=== PATIENT | female | born 1950 | race Caucasian/White ===

== ENCOUNTER 2017-07-29 20:18 | Emergency (ER) | payer MEDICARE, OTHER ==
[2017-07-29] MEDS ORDERED: ACETAMINOPHEN 325 MG TABLET PO ONE (20:58)
[2017-07-29] MEDS ORDERED: NORMAL SALINE 1000 ML 1,000 ML IV ONE (20:58)
--- NOTE | 2017-07-29 21:16 | ER Document Report ---
ED General - General Chief Complaint: Nausea/Vomiting, dysuria, dehydration Stated Complaint: VOMITING Time Seen by Provider: 07/29/17 21:04 Notes: Patient is a 67-year-old female that comes emergency department for chief complaint of fever, flank pain, and vomiting. She states that she has not vomited today, she vomited for the past several days, she started developing fevers and dysuria yesterday, she reports flank pain that is mainly on her right side. She denies chest pain, difficulty breathing, abdominal pain, she reports she has a mild headache. Only past medical history is hypertension, appendectomy, hiatal hernia repair. She lives at home. TRAVEL OUTSIDE OF THE [place] IN LAST 30 DAYS: No - Related Data Allergies/Adverse Reactions: No Known Allergies Allergy (Unverified 04/17/14 11:18) Past Medical History - General Information source: Patient - Social History Smoking Status: Never Smoker Frequency of alcohol use: None Drug Abuse: None Lives with: Family Family History: Reviewed & Not Pertinent - Past Medical History Cardiac Medical History: Reports: Hx Hypercholesterolemia, Hx Hypertension Renal/ Medical History: Denies: Hx Peritoneal Dialysis - Immunizations Hx Diphtheria, Pertussis, Tetanus Vaccination: Yes Review of Systems - Review of Systems Constitutional: See HPI EENT: No symptoms reported Cardiovascular: No symptoms reported Respiratory: No symptoms reported Gastrointestinal: See HPI Genitourinary: See HPI Female Genitourinary: No symptoms reported Musculoskeletal: No symptoms reported Skin: No symptoms reported Hematologic/Lymphatic: No symptoms reported Neurological/Psychological: No symptoms reported Physical Exam - Vital signs Vitals: Temp Pulse Resp BP Pulse Ox 103.1 F H 90 18 131/87 H 95 07/29/17 20:36 07/29/17 20:36 07/29/17 20:36 07/29/17 20:36 07/29/17 20:36 Interpretation: Normal - General General appearance: Appears well, Alert In distress: None - HEENT Head: Normocephalic, Atraumatic Eyes: Normal Conjunctiva: Normal Extraocular movements intact: Yes Eyelashes: Normal Pupils: PERRL Sinus: Normal Nasal: Normal Mouth/Lips: Normal Mucous membranes: Normal Pharynx: Normal Neck: Normal - Respiratory Respiratory status: No respiratory distress Chest status: Nontender Breath sounds: Normal Chest palpation: Normal - Cardiovascular Rhythm: Regular. No: Tachycardia Heart sounds: Normal auscultation, S1 appreciated, S2 appreciated Murmur: No - Abdominal Inspection: Normal Distension: No distension Bowel sounds: Normal Tenderness: Nontender. No: Tender, Guarding Organomegaly: No organomegaly - Back Back: Normal, Nontender. No: Tender - Extremities General upper extremity: Normal inspection, Nontender, Normal ROM, Normal strength General lower extremity: Normal inspection, Nontender, Normal ROM, Normal strength - Neurological Neuro grossly intact: Yes Cognition: Normal Orientation: AAOx4 [place] Coma Scale Eye Opening: Spontaneous [place] Coma Scale Verbal: Oriented [place] Coma Scale Motor: Obeys Commands Darren Coma Scale Total: 15 Speech: Normal Motor strength normal: LUE, RUE, LLE, RLE Sensory: Normal - Psychological Associated symptoms: Normal affect, Normal mood - Skin Skin Temperature: Warm Skin Moisture: Dry Skin Color: Normal Course - Re-evaluation Re-evalutation: Patient febrile at 103.1, however she actually is extremely well-appearing, she is not tachycardic, hypotensive, or in any distress. Soft abdomen, clear lungs , no CVA tenderness. Ambulates without difficulty. Smiling and conversational. CBC does not show leukocytosis or bandemia. Chemistry unremarkable. Chest x-ray unremarkable. Urinalysis shows significant infection. Rocephin given. Urine culture placed. Blood cultures were placed. Lactic acid is not elevated. I reevaluated patient. She is smiling, she states that after Tylenol she has no symptoms and she wants to leave. I did discuss potential admission because of her age, significant infection, and fever. Patient and both declined. They state that if she develops vomiting, continues to have spiking fever, develops flank pain, worsens in any way that they will return, however they are not interested in discussing admission any further. Patient was given Levaquin, she states she will take it regularly. She does agree to see her primary care within 2 days, states she will call him in the morning. - Vital Signs Vital signs: Temp Pulse Resp BP Pulse Ox 103.1 F H 90 20 136/66 H 96 07/29/17 20:36 07/29/17 20:36 07/30/17 01:01 07/30/17 01:01 07/30/17 01:01 - Laboratory Result Diagrams: 07/29/17 21:10 07/29/17 21:10 Laboratory results interpreted by me: 07/29/17 07/29/17 07/29/17 21:10 21:10 21:10 Seg Neuts % (Manual) 87 H Lymphocytes % (Manual) 4 L Abs Neuts (Manual) 9.0 H VBG pH 7.45 H Est GFR (Non-Af Amer) 58 L Glucose 125 H POC Glucose Urine Protein Urine Ketones Urine Blood Urine Nitrite Urine Urobilinogen Ur Leukocyte Esterase 07/29/17 07/29/17 21:10 23:20 Seg Neuts % (Manual) Lymphocytes % (Manual) Abs Neuts (Manual) VBG pH Est GFR (Non-Af Amer) Glucose POC Glucose 120 H Urine Protein 100 H Urine Ketones 20 H Urine Blood MODERATE H Urine Nitrite POSITIVE H Urine Urobilinogen 4.0 H Ur Leukocyte Esterase LARGE H Discharge - Discharge Clinical Impression: Fever Qualifiers: Fever type: unspecified Qualified Code(s): R50.9 - Fever, unspecified Urinary tract infection Qualifiers: Urinary tract infection type: site unspecified Hematuria presence: without hematuria Qualified Code(s): N39.0 - Urinary tract infection, site not specified Condition: Stable Disposition: HOME, SELF-CARE Additional Instructions: You have a urinary tract infection. Please take the antibiotics daily as prescribed. Followup with your primary care within 2 days. Return to the ED immediately if you worsen in any way - vomiting, abdominal pain , back pain, returned fever, or any other concerning symptoms. Prescriptions: Levofloxacin [Levaquin 750 mg Tablet] 750 mg PO DAILY #5 tablet Referrals: BARRETT COTO MD [Primary Care Provider] - Follow up as needed
--- NOTE | 2017-07-29 21:45 | RADIOLOGY REPORT (SQ) ---
EXAM DESCRIPTION: CHEST PA/LAT COMPLETED DATE/TIME: 07/29/2017 9:36 pm REASON FOR STUDY: fever COMPARISON: 09/07/2015. EXAM PARAMETERS: NUMBER OF VIEWS: two views TECHNIQUE: Digital Frontal and Lateral radiographic views of the chest acquired. RADIATION DOSE: NA LIMITATIONS: none FINDINGS: LUNGS AND PLEURA: No opacities, masses or pneumothorax. No pleural effusion. MEDIASTINUM AND HILAR STRUCTURES: No masses or contour abnormalities. HEART AND VASCULAR STRUCTURES: Heart normal size. No evidence for failure. BONES: No acute findings. HARDWARE: None in the chest. OTHER: No other significant finding. IMPRESSION: NO SIGNIFICANT RADIOGRAPHIC FINDING IN THE CHEST. TECHNICAL DOCUMENTATION: JOB ID: [id number] [employer]- All Rights Reserved
[2017-07-29 21:55] LABS: HEMATOCRIT 40.3 % (36.0-47.0); HGB HCT DIFFERENCE 1.7; MEAN CORPUSCULAR HEMOGLOBIN 31.4 pg (27.0-33.4); MEAN CORPUSCULAR HGB CONC 34.6 g/dL (32.0-36.0); MEAN CORPUSCULAR VOLUME 91 fl (80-97); RED BLOOD COUNT 4.44 10^6/uL (3.72-5.28)
[2017-07-29 21:57] LABS: VENOUS BLOOD BASE EXCESS 1.1 mmol/L; VENOUS BLOOD HCO3 24.7 mmol/L (20-32); VENOUS BLOOD PCO2 36.2 mmHg (35-63); VENOUS BLOOD PH 7.45 (7.30-7.42)
[2017-07-29 21:59] LABS: PROTHROMBIN TIME 13.5 SEC (11.4-15.4)
[2017-07-29 22:13] LABS: ALANINE AMINOTRANSFERASE 33 U/L (9-52); ALBUMIN 4.3 g/dL (3.5-5.0); ALKALINE PHOSPHATASE 117 U/L (38-126); ANION GAP 13 (5-19); ASPARTATE AMINO TRANSFERASE 36 U/L (14-36); BILIRUBIN,DIRECT 0.4 mg/dL (0.0-0.4); BILIRUBIN,TOTAL 0.8 mg/dL (0.2-1.3); BLOOD UREA NITROGEN 20 mg/dL (7-20); CALCIUM 9.6 mg/dL (8.4-10.2); CARBON DIOXIDE 24 mmol/L (22-30); CHLORIDE 102 mmol/L (98-107); CREATININE RESULT 0.96 mg/dL (0.52-1.25); GLUCOSE 125 mg/dL (75-110); POTASSIUM 3.6 mmol/L (3.6-5.0); SODIUM 139.2 mmol/L (137-145); TOTAL PROTEIN 8.1 g/dL (6.3-8.2)
[2017-07-29 22:17] LABS: BAND NEUTROPHILS % (MANUAL) 3 % (3-5); BASOPHILS % (MANUAL) 0 % (0-2); EOSINOPHILS % (MANUAL) 0 % (0-6); LYMPHOCYTES % (MANUAL) 4 % (13-45); TOTAL CELLS COUNTED 100
[2017-07-29 22:20] LABS: ANISOCYTOSIS SLIGHT; PLATELET CLUMPS PRESENT; POLYCHROMASIA SLIGHT
[2017-07-29 22:25] LABS: APPEARANCE,URINE CLOUDY; BILIRUBIN,URINE NEGATIVE (NEGATIVE); GLUCOSE, URINE NEGATIVE (NEGATIVE); KETONES,URINE 20 mg/dL (NEGATIVE); LEUKOCYTE ESTERASE,URINE LARGE (NEGATIVE); NITRITE,URINE POSITIVE (NEGATIVE); PROTEIN,URINE 100 mg/dL (NEGATIVE); URINE SPECIFIC GRAVITY 1.015
[2017-07-29] MEDS ORDERED: CEFTRIAXONE 1 GM/D5W RTU 1 GM/50 ML RTUPB IV ONE (22:47)
[2017-07-30 01:24] VITALS: BP 136/66
--- NOTE | 2017-07-30 07:54 | EKG REPORT ---
SEVERITY:- ABNORMAL ECG - SINUS RHYTHM LEFT ANTERIOR FASCICULAR BLOCK BORDERLINE T ABNORMALITIES, ANTERIOR LEADS : Confirmed by: David Milian MD 30-Jul-2017 07:54:12
== END 2017-07-30 01:24 | disposition home or self-care (01) ==
LOC: ER 20:18
DX: N39.0 Urinary tract infection, site not specified (principal); R50.9 Fever, unspecified; E86.0 Dehydration; R11.2 Nausea with vomiting, unspecified; E78.00 Pure hypercholesterolemia, unspecified; I10 Essential (primary) hypertension
CPT/HCPCS: 93005; 99284; 96361; 96365; 36415; 87040; 87086; 82962; 85025; 85610; 87077; 87088; 80053; 81001; 87186; 82803; 83605; 71020; 93010; A9270; J7030; J0696

== ENCOUNTER 2017-07-30 08:31 | Observation (INO) | payer MEDICARE, OTHER ==
[2017-07-30] MEDS ORDERED: ONDANSETRON HCL INJ/PF 4 MG/2 ML SDV IV ONE (09:44)
[2017-07-30] MEDS ORDERED: NORMAL SALINE 1000 ML 1,000 ML IV PRN ×2 (09:45→13:36)
--- NOTE | 2017-07-30 09:48 | ER Document Report ---
ED General - General Chief Complaint: Urinary Problem Stated Complaint: URINARY SYMPTOMS Time Seen by Provider: 07/30/17 09:28 Mode of Arrival: Ambulatory Information source: Patient Notes: This is a 67-year-old female with a history of hypertension and dyslipidemia who presented to the emergency room yesterday with fever of 103, flank pain and Rigors. Patient was diagnosed with a pyelonephritis, treated with IV fluids and IV antibiotics and discharged with oral antibiotics. Patient states she felt good at the time of discharge at 2 AM. Patient states she went to bed at 4 AM and then was awoken at 6 AM with Rigors, vomiting, nausea and right flank pain. Review of the urine from yesterday shows gram-negative rods. TRAVEL OUTSIDE OF THE [place] IN LAST 30 DAYS: No - HPI Onset: Just prior to arrival Onset/Duration: Gradual Quality of pain: Dull Severity: Moderate Associated symptoms: Chills, Fever Exacerbated by: Denies Relieved by: Denies Similar symptoms previously: Yes Recently seen / treated by doctor: Yes - Related Data Allergies/Adverse Reactions: No Known Allergies Allergy (Verified 07/30/17 08:39) Home Medications: Current Home Medications Lisinopril [Prinivil] 20 mg PO DAILY 07/30/17 [History] Omeprazole 20 mg PO DAILY 07/30/17 [History] Past Medical History - General Information source: Patient - Social History Smoking Status: Never Smoker Cigarette use (# per day): No Chew tobacco use (# tins/day): No Frequency of alcohol use: None Drug Abuse: None Lives with: Family Family History: Reviewed & Not Pertinent Patient has suicidal ideation: No Patient has homicidal ideation: No - Past Medical History Cardiac Medical History: Reports: Hx Hypercholesterolemia, Hx Hypertension Neurological Medical History: Reports: Hx Migraine Renal/ Medical History: Denies: Hx Peritoneal Dialysis Past Surgical History: Reports: Hx Abdominal Surgery - hernia repair, Hx Appendectomy, Hx Tonsillectomy - Immunizations Hx Diphtheria, Pertussis, Tetanus Vaccination: Yes Review of Systems - Review of Systems Notes: Review of systems: Constitutional: Positive for fever and rigors EENT: Denies ear pain, sinus tenderness, throat pain, throat swelling. Cardiovascular: Denies chest pain, palpitations, dyspnea or edema. Respiratory: Denies wheezing, cough, hemoptysis. Abdomen: Denies abdominal pain, nausea, vomiting, diarrhea. Denies BRBPR or melena. Genitourinary: Dysuria and right flank pain Musculoskeletal: denies joint pain or swelling, denies back pain. Neurologic: Denies headache, photophobia, neck stiffness, weakness. Denies loss of bowel or bladder function. Denies saddle anesthesia. Skin: Denies rash, lesions. Physical Exam - Vital signs Vitals: Temp Pulse Resp BP Pulse Ox 98.4 F 94 16 128/73 H 95 07/30/17 08:35 07/30/17 08:35 07/30/17 08:35 07/30/17 08:35 07/30/17 08:35 Notes: Physical exam: GENERAL: 67-year-old female, alert and oriented 3, no acute distress HEAD: Atraumatic, normocephalic. EYES: Pupils equal round and reactive to light, extraocular movements intact, sclera anicteric, conjunctiva are normal. ENT: TMs normal, nares patent, oropharynx clear without exudates. Moist mucous membranes. NECK: Normal range of motion, supple without obvious mass or JVD. LUNGS: Breath sounds clear to auscultation bilaterally and equal. No wheezes rales or rhonchi. HEART: Regular rate and rhythm without murmurs, rubs or gallops. ABDOMEN: Soft, normoactive bowel sounds. No tenderness to palpation. No guarding, no rebound. No masses appreciated. BACK: The patient does have right CVA tenderness without any obvious changes to the skin, swelling or erythema. EXTREMITIES: Normal range of motion, no pitting or edema. No clubbing or cyanosis. NEUROLOGICAL: Cranial nerves II through XII grossly intact. Normal speech, moving all extremities. PSYCH: Normal mood, normal affect. SKIN: Warm, Dry, normal turgor, no rashes or lesions noted. Course - Re-evaluation Re-evalutation: 07/30/17 09:49 Note: The patient is presenting with symptoms of bacteremia in the setting of pyelonephritis. Her urine culture from last night already shows gram-negative rods. Blood cultures are pending. Based upon the persistence of vomiting and inability to tolerate PO antibiotics, recurrent rigors, we will admit her to the hospital for IV fluids and IV antibiotics. 07/30/17 10:59 - Vital Signs Vital signs: Temp Pulse Resp BP Pulse Ox 98.4 F 94 18 128/73 H 95 07/30/17 08:35 07/30/17 08:35 07/30/17 09:02 07/30/17 08:35 07/30/17 08:35 - Diagnostic Test Radiology reviewed: Image reviewed, Reports reviewed - CT of the abdomen consistent with pyelonephritis Discharge - Discharge Clinical Impression: Pyelonephritis, Vomiting with nausea Condition: Stable Disposition: ADMITTED INPATIENT Admitting Provider: Hospitalist - Dr Ortega
--- NOTE | 2017-07-30 10:46 | RADIOLOGY REPORT (SQ) ---
EXAM DESCRIPTION: CT LTD RENAL STONE PROTOCOL ON COMPLETED DATE/TIME: 07/30/2017 10:00 am REASON FOR STUDY: right flank pain COMPARISON: CT abdomen pelvis 04/17/2014 TECHNIQUE: CT scan of the abdomen and pelvis performed without intravenous or oral contrast. Images reviewed with lung, soft tissue, and bone windows. Reconstructed coronal and sagittal MPR images revi ewed. All images stored on PACS. All CT scanners at this facility use dose modulation, iterative reconstruction, and/or weight based d osing when appropriate to reduce radiation dose to as low as reasonably achievable (ALARA). [facility]: Dose Right [facility]: CareDose [facility]: Dose Right [facility]: Teradose 4D [facility]: [employer] RADIATION DOSE: Up-to-date CT equipment and radiation dose reduction techniques were employed. CTDIv ol: 10.1 mGy. DLP: 509 mGy-cm.mGy. LIMITATIONS: None. FINDINGS: LOWER CHEST: Large retrocardiac hiatal hernia. NON-CONTRASTED LIVER, SPLEEN, ADRENALS: Evaluation limited by lack of IV contrast. No identified sign ificant masses. PANCREAS: No masses. No peripancreatic inflammatory changes. GALLBLADDER: No identified stones by CT criteria. No inflammatory changes to suggest cholecystitis. RIGHT KIDNEY AND URETER: There is mild right hydronephrosis and hydroureter down to the level of the ureterovesical junction. No radiopaque urinary calculi are identified. This could either be due to a recently passed right-sided ureteral stone, or could be seen in pyelonephritis. No right renal cysts or masses. No intrarenal stones. LEFT KIDNEY AND URETER: No suspicious masses. Assessment limited by lack of IV contrast. No signifi cant calcifications. No hydronephrosis or hydroureter. AORTA AND RETROPERITONEUM: No aneurysm. No retroperitoneal masses or adenopathy. BOWEL AND PERITONEAL CAVITY: No obvious masses or inflammatory changes. No free fluid. Sigmoid colon diverticuli without CT signs of acute diverticulitis. APPENDIX: Surgically absent PELVIS, BLADDER, AND ABDOMINAL WALL:No abnormal masses. No free fluid. Bladder normal. BONES: No significant findings. OTHER: No other significant finding. IMPRESSION: Mild right hydronephrosis and hydroureter, right perinephric stranding. No urinary radi opaque calculi are identified. Question recent passage of a right renal stone versus right-sided wilfredo lonephritis. COMMENT: Quality ID # [id number]: Final reports with documentation of one or more dose reduction techniques (e.g., Automated exposure control, adjustment of the mA and/or kV according to patient size, use of iterative reconstruction technique) TECHNICAL DOCUMENTATION: JOB ID: [id number] [employer]- All Rights Reserved
[2017-07-30] MEDS ORDERED: LEVOFLOXACIN 500 MG/D5W RTU 500 MG/100 ML RTUPB IV ONE (10:50)
[2017-07-30] MEDS ORDERED: ACETAMINOPHEN 325 MG TABLET PO PRN (13:36)
[2017-07-30] MEDS ORDERED: ONDANSETRON HCL INJ/PF 4 MG/2 ML SDV IV PRN (13:41)
[2017-07-30] MEDS ORDERED: TRAMADOL HCL 50 MG TABLET PO PRN (13:43)
--- NOTE | 2017-07-30 13:57 | PDOC H&P ---
History of Present Illness Admission Date/PCP: 07/30/17 11:11 BARRETT COTO MD Patient complains of: Nausea and vomiting History of Present Illness: JEREMÍAS QUESADA is a 67 year old female, with history of hiatal hernia and gastroesophageal reflux disease who was seen in the emergency room yesterday for urinary tract symptoms given 1 dose of ceftriaxone and was discharged home. The patient woke up this morning with nausea and vomiting and with back pain. She was sent back to the hospital for evaluation where a CT of the pelvis revealed findings of mild hydronephrosis possible pyelonephritis. The patient was given a dose of Rocephin and IV fluid and was referred for admission. The patient did not eat anything today due to fear of nausea and vomiting. Urine culture was performed yesterday growing gram-negative rods. Symptoms started a week ago with dysuria but no hematuria nor flank pain. The patient took over- the-counter analgesics and urinary antiseptics without relief of symptoms. This weekend patient started to develop fever and chills with associated nausea and vomiting and patient eventually presented to the emergency room yesterday with above complaints. Past Medical History Cardiac Medical History: Reports: Hyperlipidema, Hypertension Neurological Medical History: Reports: Migraine GI Medical History: Reports: Gastroesophageal Reflux Disease, Hiatal Hernia Past Surgical History Past Surgical History: Reports: Appendectomy, Tonsillectomy, Other - Hernia surgery Social History Lives with: Family Smoking Status: Never Smoker Frequency of Alcohol Use: None Hx Recreational Drug Use: No Hx Prescription Drug Abuse: No Family History Family History: Malignancy - Pancreatic cancer, Other - Crohn's disease Parental Family History Reviewed: Yes Children Family History Reviewed: Yes Sibling(s) Family History Reviewed.: Yes Medication/Allergy Home Medications: Potassium Chloride 10 meq PO DAILY 04/17/14 Simvastatin 40 mg PO QHS 04/17/14 Diltiazem HCl [Diltiazem 24Hr ER] 120 mg PO DAILY 07/30/17 Lisinopril [Prinivil] 20 mg PO DAILY 07/30/17 Omeprazole 20 mg PO DAILY 07/30/17 Allergies/Adverse Reactions: No Known Allergies Allergy (Verified 07/30/17 08:39) Review of Systems Constitutional: PRESENT: chills, fever(s). ABSENT: headache(s), night sweats, weakness, weight gain, weight loss Eyes: ABSENT: visual disturbances Ears: ABSENT: hearing changes Nose, Mouth, and Throat: ABSENT: mouth pain, sore throat Cardiovascular: ABSENT: chest pain, dyspnea on exertion, edema, orthropnea, palpitations Respiratory: ABSENT: cough, dyspnea, hemoptysis, sputum Gastrointestinal: PRESENT: abdominal pain - More than the back and flank, bloating, nausea, vomiting. ABSENT: constipation, diarrhea, hematemesis, hematochezia, melena Genitourinary: PRESENT: dysuria. ABSENT: hematuria, nocturia Musculoskeletal: ABSENT: joint swelling Integumentary: ABSENT: pruritus, rash, wounds Neurological: ABSENT: abnormal gait, abnormal speech, confusion, dizziness, focal weakness, syncope Psychiatric: ABSENT: anxiety, depression, homidical ideation, suicidal ideation Endocrine: ABSENT: cold intolerance, heat intolerance, polydipsia, polyuria Hematologic/Lymphatic: ABSENT: easy bleeding, easy bruising Physical Exam Vital Signs: Temp Pulse Resp BP Pulse Ox 98.1 F 63 18 106/59 L 100 07/30/17 12:12 07/30/17 12:12 07/30/17 12:12 07/30/17 12:12 07/30/17 12:12 General appearance: PRESENT: no acute distress, obese Head exam: PRESENT: atraumatic, normocephalic Eye exam: PRESENT: conjunctiva pink, EOMI, PERRLA. ABSENT: scleral icterus Ear exam: PRESENT: normal external ear exam Mouth exam: PRESENT: moist, neck supple, tongue midline Throat exam: ABSENT: post pharyngeal erythema Neck exam: PRESENT: full ROM. ABSENT: carotid bruit, JVD, lymphadenopathy, thyromegaly Respiratory exam: PRESENT: clear to auscultation trina, unlabored. ABSENT: rales , rhonchi, wheezes Cardiovascular exam: PRESENT: RRR, +S1, +S2. ABSENT: diastolic murmur, rubs, systolic murmur Pulses: PRESENT: normal dorsalis pedis pul Vascular exam: PRESENT: normal capillary refill GI/Abdominal exam: PRESENT: normal bowel sounds, soft. ABSENT: distended, guarding, mass, organolmegaly, rebound, tenderness Rectal exam: PRESENT: deferred Extremities exam: PRESENT: full ROM. ABSENT: calf tenderness, clubbing, pedal edema Neurological exam: PRESENT: alert, awake, oriented to person, oriented to place , oriented to time, oriented to situation Psychiatric exam: PRESENT: appropriate affect, normal mood. ABSENT: homicidal ideation, suicidal ideation Skin exam: PRESENT: dry, intact, warm. ABSENT: cyanosis, rash Results Impressions: Limited or Localized CT 07/30/17 09:45 IMPRESSION: Mild right hydronephrosis and hydroureter, right perinephric stranding. No urinary radiopaque calculi are identified. Question recent passage of a right renal stone versus right-sided pyelonephritis. Assessment & Plan - Diagnosis (1) Acute pyelonephritis Is this a current diagnosis for this admission?: Yes (2) Hydronephrosis Qualifiers: Hydronephrosis type: unspecified Qualified Code(s): N13.30 - Unspecified hydronephrosis Is this a current diagnosis for this admission?: Yes (3) Hyperlipidemia Qualifiers: Hyperlipidemia type: unspecified Qualified Code(s): E78.5 - Hyperlipidemia , unspecified Is this a current diagnosis for this admission?: Yes (4) Essential hypertension Is this a current diagnosis for this admission?: Yes (5) Hiatal hernia Is this a current diagnosis for this admission?: Yes (6) GERD (gastroesophageal reflux disease) Qualifiers: Esophagitis presence: without esophagitis Qualified Code(s): K21.9 - Gastro -esophageal reflux disease without esophagitis Is this a current diagnosis for this admission?: Yes - Time Time Spent: Greater than 70 Minutes - Plan Summary Plan Summary: The patient will be admitted to observation. We will begin the patient on IV fluids start clear liquid diet and start intravenous ceftriaxone as well. We will follow cultures. DVT prophylaxis with Lovenox will be placed. As needed antipyretic and anti-emetics will be given. Further testing depends on the initial evaluation as outlined above.
[2017-07-30 14:37] LABS: ANION GAP 12 (5-19); BLOOD UREA NITROGEN 19 mg/dL (7-20); CALCIUM 9.4 mg/dL (8.4-10.2); CARBON DIOXIDE 23 mmol/L (22-30); CHLORIDE 107 mmol/L (98-107); CREATININE RESULT 0.82 mg/dL (0.52-1.25); GLUCOSE 163 mg/dL (75-110); LIPASE 10.5 U/L (23-300); POTASSIUM 3.4 mmol/L (3.6-5.0); SODIUM 142.4 mmol/L (137-145)
[2017-07-30 14:46] LABS: AMYLASE < 30 U/L (30-110)
[2017-07-30] MEDS ORDERED: ENOXAPARIN SODIUM INJ 40 MG/0.4 ML DISP.SYRIN SUBCUT ONE (15:00)
[2017-07-30] MEDS ORDERED: ERTAPENEM SODIUM 1 GM in NORMAL SALINE 50 ML IV ONE (16:00)
[2017-07-30] MEDS: DOCUSATE SODIUM 100 MG CAPSULE PO SCH (17:29)
[2017-07-30] MEDS: LANSOPRAZOLE 30 MG TAB.RAP.DR PO SCH (17:29)
[2017-07-30] MEDS ORDERED: CEFTRIAXONE 1 GM/D5W RTU 1 GM/50 ML RTUPB IV SCH (18:00)
[2017-07-30] MEDS ORDERED: SIMVASTATIN 40 MG TABLET PO SCH (22:00)
[2017-07-31 04:49] LABS: ABSOLUTE BASOPHILS # (AUTO) 0.1 10^3/uL (0.0-0.2); ABSOLUTE EOSINOPHILS # (AUTO) 0.1 10^3/uL (0.0-0.6); ABSOLUTE MONOCYTES (AUTO) 0.9 10^3/uL (0.1-1.4); ABSOLUTE NEUT (AUTO) 6.7 10^3/uL (1.7-8.2); BASOPHILS % (AUTO) 0.6 % (0-2); HEMATOCRIT 35.8 % (36.0-47.0); HEMOGLOBIN 12.5 g/dL (12.0-15.5); HGB HCT DIFFERENCE 1.7; LYMPHOCYTES % (AUTO) 11.5 % (13-45); MEAN CORPUSCULAR HEMOGLOBIN 31.7 pg (27.0-33.4); MEAN CORPUSCULAR HGB CONC 34.9 g/dL (32.0-36.0); MEAN CORPUSCULAR VOLUME 91 fl (80-97); MONOCYTES % (AUTO) 10.3 % (3-13); RED BLOOD COUNT 3.95 10^6/uL (3.72-5.28); SEGMENTED NEUTROPHILS % (AUTO) 76.6 % (42-78); WHITE BLOOD COUNT 8.7 10^3/uL (4.0-10.5)
[2017-07-31 05:04] LABS: PHOSPHORUS 2.5 mg/dL (2.5-4.5)
[2017-07-31] MEDS: LANSOPRAZOLE 30 MG TAB.RAP.DR PO SCH (05:49)
[2017-07-31] MEDS: DOCUSATE SODIUM 100 MG CAPSULE PO SCH (09:27)
[2017-07-31] MEDS ORDERED: ENOXAPARIN SODIUM INJ 40 MG/0.4 ML DISP.SYRIN SUBCUT SCH (10:00)
[2017-07-31] MEDS ORDERED: (PENDING PHARMACY ID) (Diltiazem Hcl [Diltiazem 24hr Er] 120 MG) PO SCH (10:00)
[2017-07-31] MEDS ORDERED: DILTIAZEM HCL 120 MG CAP.SR.24H PO SCH (10:00)
[2017-07-31] MEDS ORDERED: ERTAPENEM SODIUM 1 GM in NORMAL SALINE 50 ML IV SCH (10:00)
[2017-07-31] MEDS ORDERED: LANSOPRAZOLE 30 MG TAB.RAP.DR PO ONE (10:15)
[2017-07-31] MEDS ORDERED: ONDANSETRON HCL INJ/PF 4 MG/2 ML SDV IV PRN (10:30)
[2017-07-31 12:34] VITALS: BP 151/68
[2017-07-31] MEDS ORDERED: POTASSIUM CHLORIDE 20 MEQ/15 ML UDCUP PO ONE (14:14)
--- NOTE | 2017-07-31 15:13 | PDOC DISCHARGE SUMMARY ---
General - Admit/Disc Date/PCP Admission Date/Primary Care Provider: 07/30/17 11:11 BARRETT COTO MD Discharge Date: 07/31/17 - Discharge Diagnosis (1) Acute pyelonephritis Is this a current diagnosis for this admission?: Yes (2) Hydronephrosis Is this a current diagnosis for this admission?: Yes (3) Hyperlipidemia Is this a current diagnosis for this admission?: Yes (4) Essential hypertension Is this a current diagnosis for this admission?: Yes (5) Hiatal hernia Is this a current diagnosis for this admission?: Yes (6) GERD (gastroesophageal reflux disease) Is this a current diagnosis for this admission?: Yes - Additional Information Resuscitation Status: Full Code Discharge Diet: Cardiac Discharge Activity: Activity As Tolerated, Balance Activity w/Rest Home Medications: Potassium Chloride 10 meq PO DAILY 04/17/14 Simvastatin 40 mg PO QHS 04/17/14 Diltiazem HCl [Diltiazem 24Hr ER] 120 mg PO DAILY 07/30/17 Lisinopril [Prinivil] 20 mg PO DAILY 07/30/17 Omeprazole 20 mg PO DAILY 07/30/17 Acidoph/L.bulg/Bif.b/S.thermop [Bacid Caplet] 1 each PO BID #28 tablet 07/31/17 Levofloxacin [Levaquin 750 mg Tablet] 750 mg PO DAILY 11 Days #10 tab 07/31/17 Metronidazole [Flagyl 500 mg Tablet] 500 mg PO TID #42 tablet 07/31/17 Additional Information: Follow-up blood culture results as outpatient with primary care physician in 3- 5 days. Ultrasound of the kidneys in 2 weeks for follow-up hydronephrosis with primary care physician. History of Present Illness Patient complains of: Nausea and vomiting. History of Present Illness: JEREMÍAS QUESADA is a 67 year old female, with history of hiatal hernia and gastroesophageal reflux disease who was seen in the emergency room yesterday for urinary tract symptoms given 1 dose of ceftriaxone and was discharged home. The patient woke up this morning with nausea and vomiting and with back pain. She was sent back to the hospital for evaluation where a CT of the pelvis revealed findings of mild hydronephrosis possible pyelonephritis. The patient was given a dose of Rocephin and IV fluid and was referred for admission. The patient did not eat anything today due to fear of nausea and vomiting. Urine culture was performed yesterday growing gram-negative rods. Symptoms started a week ago with dysuria but no hematuria nor flank pain. The patient took over- the-counter analgesics and urinary antiseptics without relief of symptoms. This weekend patient started to develop fever and chills with associated nausea and vomiting and patient eventually presented to the emergency room yesterday with above complaints. Hospital Course Hospital Course: The patient was admitted to telemetry floor. The patient was started on intravenous fluids. She has a urine culture that was growing gram-negative rods and therefore she was started on ceftriaxone. Patient however had one blood culture bottle growing gram-negative rods as well and therefore ceftriaxone was discontinued and patient was placed on Invanz. The following day the patient significantly improved. There was no nausea or vomiting or any abdominal pain back pain or back flank pain. She however developed loose bowel movements intermittently. Patient tolerated oral intake well. She wanted to go home and requested to be discharged and continue treatment on an outpatient basis. She was therefore advised to return to the emergency room if symptoms of diarrhea worsens. She was given prescriptions to cover for antibiotic related diarrhea with lactobacillus and metronidazole. Likewise she was advised to follow-up blood culture results on an outpatient basis with primary care physician in 3-5 days and have a follow-up renal ultrasound for her mild hydronephrosis seen on CT scan. Urine culture grew E. coli which is pansensitive but blood culture remains pending. The rest of the hospital stay is unremarkable. Physical Exam Vital Signs: Temp Pulse Resp BP Pulse Ox 98.9 F 64 17 151/68 H 99 07/31/17 11:40 07/31/17 11:40 07/31/17 11:40 07/31/17 11:40 07/31/17 11:40 Intake & Output 07/30/17 07/31/17 08/01/17 06:59 06:59 06:59 Intake Total 890 Output Total 2300 Balance -1410 Weight 74.6 kg General appearance: PRESENT: no acute distress, cooperative, obese Head exam: PRESENT: normocephalic Eye exam: PRESENT: EOMI Mouth exam: PRESENT: moist, neck supple Neck exam: ABSENT: JVD Respiratory exam: PRESENT: clear to auscultation trina. ABSENT: rhonchi, wheezes Cardiovascular exam: PRESENT: RRR. ABSENT: gallop GI/Abdominal exam: PRESENT: soft. ABSENT: distended, tenderness Extremities exam: ABSENT: pedal edema Neurological exam: PRESENT: alert, awake, oriented to person, oriented to place , oriented to time, oriented to situation Skin exam: PRESENT: dry, warm. ABSENT: cyanosis Results Laboratory Results: 07/31/17 04:14 07/30/17 14:02 07/31/17 07/31/17 04:14 04:14 WBC 8.7 RBC 3.95 Hgb 12.5 Hct 35.8 L MCV 91 MCH 31.7 MCHC 34.9 RDW 14.0 Plt Count 178 Seg Neutrophils % 76.6 Lymphocytes % 11.5 L Monocytes % 10.3 Eosinophils % 1.0 Basophils % 0.6 Absolute Neutrophils 6.7 Absolute Lymphocytes 1.0 Absolute Monocytes 0.9 Absolute Eosinophils 0.1 Absolute Basophils 0.1 Phosphorus 2.5 Magnesium 2.0 Impressions: Limited or Localized CT 07/30/17 09:45 IMPRESSION: Mild right hydronephrosis and hydroureter, right perinephric stranding. No urinary radiopaque calculi are identified. Question recent passage of a right renal stone versus right-sided pyelonephritis. Qualifiers PATEINT BEING DISCHARGED WITH ANY OF THE FOLLOWING DIAGNOSIS?: No Plan Discharge Plan: Appointment with primary care physician in 3-5 days. Time Spent: Less than 30 Minutes
== END 2017-07-31 16:02 | disposition home or self-care (01) ==
LOC: ER 08:31 → INTOOBSV 11:11 → EH 11:11 → 5 12:02
DX: N10 Acute pyelonephritis (principal); B96.20 Unspecified Escherichia coli [E. coli] as the cause of diseases classified elsewhere; N13.30 Unspecified hydronephrosis; E78.5 Hyperlipidemia, unspecified; I10 Essential (primary) hypertension; K44.9 Diaphragmatic hernia without obstruction or gangrene; K21.9 Gastro-esophageal reflux disease without esophagitis; R78.81 Bacteremia; K52.1 Toxic gastroenteritis and colitis; T36.1X5A Adverse effect of cephalosporins and other beta-lactam antibiotics, initial encounter; Y92.239 Unspecified place in hospital as the place of occurrence of the external cause; Z79.899 Other long term (current) drug therapy; Z80.0 Family history of malignant neoplasm of digestive organs; Z83.79 Family history of other diseases of the digestive system; Z90.49 Acquired absence of other specified parts of digestive tract; Z98.890 Other specified postprocedural states
CPT/HCPCS: 99285; 96361; 96374; 36415 ×2; 82150; 83690; 83735; 84100; 85025; 80048; 76380; G0378 ×2; A9270 ×5; J1956; J1335 ×2; J1650; J2405; J7030 ×2

== ENCOUNTER 2017-12-24 09:31 | Day surgery (SDC) | payer MEDICARE, OTHER ==
[~2017-12-24 09:31] MED LIST: KETOROLAC TROMETHAMINE 0.45% 4 DROP/0.4 ML DROPERETTE OD PRN
[2017-12-24] MEDS: CYCLOPENTOLATE 0.2%/PHENYLEPHRINE 1% OPH SOLN 2 ML OD PRN ×3 (10:15→10:36)
[2017-12-24] MEDS: TETRACAINE HCL 0.5% OPH SOLN 0.6 ML DROPERETTE OD PRN ×4 (10:15→10:44)
[2017-12-24] MEDS: TROPICAMIDE 1% OPH SOLN 3 ML OD PRN ×3 (10:16→10:36)
[2017-12-24] MEDS: BESIFLOXACIN HCL 0.6% OPH SUSP 5 ML BOTTLE OD PRN ×4 (10:16→11:13)
[2017-12-24] MEDS ORDERED: MIDAZOLAM 2 MG/2 ML INJ ONE (10:28)
[2017-12-24] MEDS: CHONDR SU A NA/HYALUR INTRAOC KIT (SURGICARE) ONE ×2 (10:53)
[2017-12-24] MEDS: LIDOCAINE 1% INJ-PF (10 MG/ML) 30 ML SDV ONE ×2 (10:53)
[2017-12-24] MEDS: EPINEPHRINE INJ/PF 1 MG/1 ML AMPULE ONE ×2 (10:53)
[2017-12-24] MEDS: TOBRAMYCIN SULFATE/DEXAMETH OPH OINTMENT 3.5 GM ONE ×2 (11:13)
== END 2017-12-24 12:02 | disposition home or self-care (01) ==
LOC: SC 09:31
PROVIDERS: ATTEND Ophthalmology
PROC: 08RJ3JZ Replacement of Right Lens with Synthetic Substitute, Percutaneous Approach (ICD-10-PCS; principal; 2017-12-24 10:45)
DX: H25.11 Age-related nuclear cataract, right eye (principal); M19.90 Unspecified osteoarthritis, unspecified site; K21.9 Gastro-esophageal reflux disease without esophagitis; I10 Essential (primary) hypertension; E78.00 Pure hypercholesterolemia, unspecified; I49.9 Cardiac arrhythmia, unspecified; Z79.899 Other long term (current) drug therapy
CPT/HCPCS: 66984; V2630; J2250; J3490 ×3; A9270; J0171; 142

== ENCOUNTER 2018-01-07 07:55 | Day surgery (SDC) | payer MEDICARE, OTHER ==
[~2018-01-07 07:55] MED LIST changes: -KETOROLAC TROMETHAMINE 0.45% 4 DROP/0.4 ML DROPERETTE OD PRN; +KETOROLAC TROMETHAMINE 0.45% 4 DROP/0.4 ML DROPERETTE OS PRN
[2018-01-07] MEDS ORDERED: CHONDR SU A NA/HYALUR INTRAOC KIT (SURGICARE) ONE (08:00)
[2018-01-07] MEDS ORDERED: LIDOCAINE 1% INJ-PF (10 MG/ML) 30 ML SDV ONE (08:00)
[2018-01-07] MEDS ORDERED: EPINEPHRINE INJ/PF 1 MG/1 ML AMPULE ONE (08:00)
[2018-01-07] MEDS ORDERED: TOBRAMYCIN SULFATE/DEXAMETH OPH OINTMENT 3.5 GM ONE (08:00)
[2018-01-07] MEDS: CYCLOPENTOLATE 0.2%/PHENYLEPHRINE 1% OPH SOLN 2 ML OS PRN ×3 (08:20→08:40)
[2018-01-07] MEDS: TROPICAMIDE 1% OPH SOLN 3 ML OS PRN ×3 (08:20→08:40)
[2018-01-07] MEDS: TETRACAINE HCL 0.5% OPH SOLN 0.6 ML DROPERETTE OS PRN ×3 (08:20→08:51)
[2018-01-07] MEDS: BESIFLOXACIN HCL 0.6% OPH SUSP 5 ML BOTTLE OS PRN ×3 (08:21→09:10)
[2018-01-07] MEDS ORDERED: MIDAZOLAM 2 MG/2 ML INJ ONE (08:37)
[2018-01-07] MEDS ORDERED: FENTANYL CITRATE INJ/PF 100 MCG/2 ML AMPUL ONE (08:37)
== END 2018-01-07 09:50 | disposition home or self-care (01) ==
LOC: SC 07:55
PROVIDERS: ATTEND Ophthalmology
PROC: 08RK3JZ Replacement of Left Lens with Synthetic Substitute, Percutaneous Approach (ICD-10-PCS; principal; 2018-01-07 09:00)
DX: H25.12 Age-related nuclear cataract, left eye (principal); Z98.41 Cataract extraction status, right eye; M19.90 Unspecified osteoarthritis, unspecified site; I49.9 Cardiac arrhythmia, unspecified; K21.9 Gastro-esophageal reflux disease without esophagitis; I10 Essential (primary) hypertension; E78.00 Pure hypercholesterolemia, unspecified; K44.9 Diaphragmatic hernia without obstruction or gangrene; Z79.899 Other long term (current) drug therapy
CPT/HCPCS: 66984; V2630; J2250; J3490 ×3; A9270; J0171; J3010; 142

== ENCOUNTER → 2018-01-12 | Outpatient (CLI) | payer MEDICARE, OTHER ==
--- NOTE | 2018-01-12 18:17 | RADIOLOGY REPORT (SQ) ---
EXAM DESCRIPTION: U/S RETROPERITON (RENAL/AORTA) COMPLETED DATE/TIME: 01/12/2018 1:22 pm REASON FOR STUDY: PYELONEPHRITIS (N12) N12 TUBULO-INTERSTITIAL NEPHRITIS, NOT SPCF ACUTE OR TIMBER GRADER COMPARISON: CT abdomen pelvis 07/30/2017 TECHNIQUE: Dynamic and static grayscale images acquired of the kidneys and bladder and recorded on P ACS. Additional selected color Doppler and spectral images recorded. LIMITATIONS: None. FINDINGS: RIGHT KIDNEY: Normal size, 10 cm in length. Normal echogenicity. No solid or suspicious ma sses. No hydronephrosis. No calcifications. LEFT KIDNEY: Normal size, 10 cm in length. Normal echogenicity. No solid or suspicious masses. No hy dronephrosis. No calcifications. BLADDER: Incompletely distended. Grossly unremarkable. OTHER FINDINGS: No other significant finding. IMPRESSION: NORMAL RENAL AND BLADDER ULTRASOUND. TECHNICAL DOCUMENTATION: JOB ID: [id number] [employer]- All Rights Reserved
== END ==
LOC: RAD 12:40
PROVIDERS: ATTEND Urology
DX: N12 Tubulo-interstitial nephritis, not specified as acute or chronic (principal)
CPT/HCPCS: 76770

== ENCOUNTER 2018-07-07 12:27 | Emergency (ER) | payer MEDICARE, OTHER ==
[2018-07-07 14:02] LABS: APPEARANCE,URINE CLOUDY; BILIRUBIN,URINE NEGATIVE (NEGATIVE); GLUCOSE, URINE NEGATIVE (NEGATIVE); KETONES,URINE NEGATIVE (NEGATIVE); LEUKOCYTE ESTERASE,URINE LARGE (NEGATIVE); NITRITE,URINE NEGATIVE (NEGATIVE); PROTEIN,URINE NEGATIVE (NEGATIVE); URINE SPECIFIC GRAVITY 1.023; UROBILINOGEN,URINE NEGATIVE mg/dL (<2.0)
[2018-07-07 14:04] LABS: COLOR,URINE DARK YELLOW
[2018-07-07] MEDS ORDERED: MAG HYDROX/AL HYDROX/SIMETH SUSP 30 ML UDCUP PO ONE (15:09)
[2018-07-07] MEDS ORDERED: METOCLOPRAMIDE HCL ORAL SOLN 10 MG/10 ML UDCUP PO ONE (15:09)
[2018-07-07] MEDS ORDERED: LIDOCAINE 2% VISCOUS SOLN 20 ML UDCUP PO ONE (15:09)
--- NOTE | 2018-07-07 15:54 | RADIOLOGY REPORT (SQ) ---
EXAM DESCRIPTION: CHEST 2 VIEWS COMPLETED DATE/TIME: 07/07/2018 3:44 pm REASON FOR STUDY: nv COMPARISON: None. EXAM PARAMETERS: NUMBER OF VIEWS: two views TECHNIQUE: Digital Frontal and Lateral radiographic views of the chest acquired. RADIATION DOSE: NA LIMITATIONS: none FINDINGS: LUNGS AND PLEURA: No opacities, masses or pneumothorax. No pleural effusion. MEDIASTINUM AND HILAR STRUCTURES: No masses or contour abnormalities. HEART AND VASCULAR STRUCTURES: Heart normal size. No evidence for failure. BONES: No acute findings. HARDWARE: None in the chest. OTHER: No other significant finding. IMPRESSION: NO ACUTE RADIOGRAPHIC FINDING IN THE CHEST. TECHNICAL DOCUMENTATION: JOB ID: [id number] [employer]- All Rights Reserved Reading location - IP/workstation name: [id number]
[2018-07-07 16:41] LABS: ABSOLUTE BASOPHILS # (AUTO) 0.1 10^3/uL (0.0-0.2); ABSOLUTE EOSINOPHILS # (AUTO) 0.1 10^3/uL (0.0-0.6); ABSOLUTE NEUT (AUTO) 10.5 10^3/uL (1.7-8.2); BASOPHILS % (AUTO) 0.8 % (0-2); EOSINOPHILS % (AUTO) 1.1 % (0-6); HEMATOCRIT 45.1 % (36.0-47.0); HEMOGLOBIN 15.2 g/dL (12.0-15.5); LYMPHOCYTES % (AUTO) 14.4 % (13-45); MEAN CORPUSCULAR HEMOGLOBIN 30.8 pg (27.0-33.4); MEAN CORPUSCULAR HGB CONC 33.8 g/dL (32.0-36.0); MEAN CORPUSCULAR VOLUME 91 fl (80-97); PLATELET COUNT 401 10^3/uL (150-450); RED BLOOD COUNT 4.95 10^6/uL (3.72-5.28); RED CELL DISTRIBUTION WIDTH 13.8 % (11.5-14.0); SEGMENTED NEUTROPHILS % (AUTO) 76.7 % (42-78); TOTAL CELLS COUNTED % (AUTO) 100 %; WHITE BLOOD COUNT 13.7 10^3/uL (4.0-10.5)
[2018-07-07 17:01] LABS: ALANINE AMINOTRANSFERASE 21 U/L (9-52); ALBUMIN 4.4 g/dL (3.5-5.0); ALKALINE PHOSPHATASE 68 U/L (38-126); ANION GAP 14 (5-19); ASPARTATE AMINO TRANSFERASE 28 U/L (14-36); BILIRUBIN,DIRECT 0.4 mg/dL (0.0-0.4); BILIRUBIN,TOTAL 0.6 mg/dL (0.2-1.3); BLOOD UREA NITROGEN 35 mg/dL (7-20); CALCIUM 11.7 mg/dL (8.4-10.2); CARBON DIOXIDE 26 mmol/L (22-30); CHLORIDE 102 mmol/L (98-107); CREATINE KINASE 25 U/L (30-135); GLUCOSE 97 mg/dL (75-110); POTASSIUM 5.2 mmol/L (3.6-5.0); SODIUM 142.3 mmol/L (137-145); TOTAL PROTEIN 7.7 g/dL (6.3-8.2)
[2018-07-07 17:15] LABS: CREATINE KINASE MB 0.32 ng/mL (<4.55)
[2018-07-07 17:17] LABS: TROPONIN I < 0.012 ng/mL
[2018-07-07] MEDS ORDERED: NITROFURANTOIN MONOHYD/M-CRYST 100 MG CAPSULE PO ONE (17:42)
[2018-07-07] MEDS ORDERED: SUCRALFATE SUSP 1 GM/10 ML UDCUP PO ONE (17:42)
[2018-07-07] MEDS ORDERED: ONDANSETRON 4 MG TAB.RAPDIS PO ONE (17:42)
--- NOTE | 2018-07-07 17:54 | ER Document Report ---
ED General - General Chief Complaint: Epigastric Pain Stated Complaint: VOMITING Time Seen by Provider: 07/07/18 15:02 TRAVEL OUTSIDE OF THE [place] IN LAST 30 DAYS: No - HPI Patient complains to provider of: Dysphasia epigastric pain Notes: Patient admitted for painful swallowing and epigastric pain ongoing at severe vomiting over the weekend. Patient states nausea vomiting has improved however patient states very painful to swallow states burning sensation in the throat and stomach. Patient states has a history of hiatal hernia is concerned that she may have injured her hiatal hernia is able surgically repaired many years ago. Patient denies any trauma denies any fevers chills diarrhea at this time no recent travel no recent antibiotics. - Related Data Allergies/Adverse Reactions: No Known Allergies Allergy (Verified 07/07/18 15:01) Past Medical History - Social History Smoking Status: Never Smoker Chew tobacco use (# tins/day): No Frequency of alcohol use: None Family History: Malignancy - Pancreatic cancer, Other - Crohn's disease Patient has suicidal ideation: No Patient has homicidal ideation: No - Past Medical History Cardiac Medical History: Reports: Hx Hypercholesterolemia, Hx Hypertension - MEDS Denies: Hx Heart Attack Pulmonary Medical History: Denies: Hx Asthma Neurological Medical History: Reports: Hx Migraine. 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 Denies: Hx Hepatitis, Hx Ulcer Infectious Medical History: Denies: Hx Hepatitis Past Surgical History: Reports: Hx Abdominal Surgery - hernia repair, Hx Appendectomy, Hx Tonsillectomy, Other - Hernia surgery. Denies: Hx Mastectomy, Hx Open Heart Surgery, Hx Pacemaker - Immunizations Hx Diphtheria, Pertussis, Tetanus Vaccination: Yes Review of Systems - Review of Systems Constitutional: No symptoms reported EENT: No symptoms reported Cardiovascular: No symptoms reported Respiratory: No symptoms reported Gastrointestinal: Abdominal pain, Nausea, Vomiting, Other - Painful swallowing Genitourinary: No symptoms reported Female Genitourinary: No symptoms reported Musculoskeletal: No symptoms reported Skin: No symptoms reported Hematologic/Lymphatic: No symptoms reported Neurological/Psychological: No symptoms reported -: Yes All other systems reviewed and negative Physical Exam - Vital signs Vitals: Temp Pulse Resp BP Pulse Ox 98.6 F 77 16 132/68 H 96 08/14/18 13:18 07/07/18 13:18 07/07/18 13:18 07/07/18 13:18 07/07/18 13:18 Interpretation: Normal - General General appearance: Appears well, Alert - HEENT Head: Normocephalic, Atraumatic Eyes: Normal Pupils: PERRL - Respiratory Respiratory status: No respiratory distress Chest status: Nontender Breath sounds: Normal Chest palpation: Normal - Cardiovascular Rhythm: Regular Heart sounds: Normal auscultation Murmur: No - Abdominal Inspection: Normal Distension: No distension Bowel sounds: Normal Tenderness: Tender - Mild tenderness in the epigastric region. Organomegaly: No organomegaly - Back Back: Normal, Nontender - Extremities General upper extremity: Normal inspection, Nontender, Normal color, Normal ROM , Normal temperature General lower extremity: Normal inspection, Nontender, Normal color, Normal ROM , Normal temperature, Normal weight bearing. No: Rayo's sign - Neurological Neuro grossly intact: Yes Cognition: Normal Orientation: AAOx4 [place] Coma Scale Eye Opening: Spontaneous Darren Coma Scale Verbal: Oriented [place] Coma Scale Motor: Obeys Commands [place] Coma Scale Total: 15 Speech: Normal Motor strength normal: LUE, RUE, LLE, RLE Sensory: Normal - Psychological Associated symptoms: Normal affect, Normal mood - Skin Skin Temperature: Warm Skin Moisture: Dry Skin Color: Normal Course - Re-evaluation Re-evalutation: 07/07/18 20:42 The patient presents with abdominal pain without signs of peritonitis or other life-threatening or serious etiology. The patient appears stable for discharge and has been instructed to return immediately if the symptoms worsen in any way , or in 8-12hr if not improved for re-evaluation. The patient has been instructed to return if the symptoms worsen or change in any way. Patient feeling better the GI cocktail. More likely patient has underlying gastroenteritis pain due to acid reflux or gastritis. Patient states that she is already on a antacid and to get the patient a prescription for omeprazole that made her sure that she was on an appropriate PPI. Patient also be treated with Carafate Zofran and Reglan for nausea and vomiting. Patient states understanding of her symptoms they recommended patients develop GI especially. 07/07/18 20:43 Urinalysis does show contamination along with a UTI. Does not have a history of pyelonephritis thereforePatient will treat this with Macrobid at this time. Cultures were reviewed E. coli with diffuse sensitivity - Vital Signs Vital signs: Temp Pulse Resp BP Pulse Ox 98.6 F 78 18 131/68 H 100 07/07/18 13:18 07/07/18 18:04 07/07/18 18:04 07/07/18 18:04 07/07/18 18:04 - Laboratory Result Diagrams: 07/07/18 16:11 07/07/18 16:11 Laboratory results interpreted by me: 07/07/18 07/07/18 07/07/18 13:20 16:11 16:11 WBC 13.7 H Absolute Neutrophils 10.5 H Potassium 5.2 H BUN 35 H Est GFR ( Amer) 53 L Est GFR (Non-Af Amer) 44 L Calcium 11.7 H Creatine Kinase 25 L Lipase 15.0 L Urine Blood SMALL H Ur Leukocyte Esterase LARGE H Discharge - Discharge Clinical Impression: GERD (gastroesophageal reflux disease) Qualifiers: Esophagitis presence: esophagitis presence not specified Qualified Code(s): K21.9 - Gastro-esophageal reflux disease without esophagitis UTI (urinary tract infection) Qualifiers: Urinary tract infection type: site unspecified Hematuria presence: without hematuria Qualified Code(s): N39.0 - Urinary tract infection, site not specified Condition: Good Disposition: HOME, SELF-CARE Additional Instructions: Your evaluation today shows no signs of pathology. I do believe some of the symptoms that you are having are coming from acid reflux. Your urinalysis does show signs of a urinary tract infection. We will start you on medication to help with the pressure and pain with swallowing cold Carafate would also recommend that she take either Zofran or Reglan for any nausea that she may have. Would also recommend that she take an [id number] antacid medication such as Prilosec. For urinary tract infection with structural antibiotic called in Macrobid. Return to the ER symptoms worsen follow-up with her primary care physician. Would recommend she follow-up with her GI specialist. Prescriptions: Metoclopramide HCl [Reglan] 5 mg PO Q6 #30 tablet Nitrofurantoin Monohyd/M-Cryst [Macrobid 100 mg Capsule] 100 mg PO BID #14 capsule Omeprazole 20 mg PO DAILY #30 capsule. Ondansetron HCl [Zofran 4 mg Tablet] 1 - 2 tab PO Q6 #30 tablet Sucralfate [Carafate 1 gm Tablet] 1 gm PO ACHS #120 tablet Forms: Return to Work Referrals: LUCERO KAMINSKI, [CONNOR MADDEN] - Follow up as needed
[2018-07-07 18:15] VITALS: BP 131/68
--- NOTE | 2018-07-07 18:42 | EKG REPORT ---
SEVERITY:- ABNORMAL ECG - SINUS RHYTHM LEFT ANTERIOR FASCICULAR BLOCK BORDERLINE T ABNORMALITIES, INFERIOR LEADS : Confirmed by: David Milian MD 07-Jul-2018 18:41:08
== END 2018-07-07 18:04 | disposition home or self-care (01) ==
LOC: ER 12:27
DX: K21.9 Gastro-esophageal reflux disease without esophagitis (principal); N39.0 Urinary tract infection, site not specified; B96.20 Unspecified Escherichia coli [E. coli] as the cause of diseases classified elsewhere; R10.13 Epigastric pain; R11.2 Nausea with vomiting, unspecified; I10 Essential (primary) hypertension; Z87.19 Personal history of other diseases of the digestive system; Z90.49 Acquired absence of other specified parts of digestive tract
CPT/HCPCS: 93005; 99284; 36415; 87086; 82553; 82550; 83690; 85025; 80053; 81001; 84484; 71046; 93010; A9270 ×3; J3490; J8499; S0119